=== PATIENT | female | born 1990 | race Two or more races ===

== ENCOUNTER 2018-01-29 10:07 | Inpatient (IN) | payer MEDICAID, OTHER ==
[~2018-01-29] VITALS: Ht 165.1 cm; Wt 75.7 kg
[2018-01-29] MEDS ORDERED: LACT. RINGERS/OXYTOCIN 20UNITS 1,000 ML IV SCH (11:19)
[2018-01-29] MEDS ORDERED: PHISODERM TOP SOLN 240ML BTL TOP PRN (11:30)
[2018-01-29] MEDS ORDERED: DERMOPLAST 60ML BOTTLE TOP PRN (11:30)
[2018-01-29] MEDS ORDERED: WITCH HAZEL-GLYCERIN PAD TOP PRN (11:30)
[2018-01-29] MEDS ORDERED: NALBUPHINE HCL 10 MG/1ml INJECTION IV PRN (11:30)
[2018-01-29] MEDS ORDERED: LIDOCAINE 2%HCL (LOCAL ANESTH.) INJ 20ML MDV ID ONE (11:30)
[2018-01-29] MEDS ORDERED: PREN-96 PO (11:54)
[2018-01-29 12:11] LABS: Basophils # (auto) 0 uL; Basophils % (auto) 0.2 % (0.0-2.0); Eosinophils # (auto) 0 uL; Eosinophils % (auto) 0.3 % (0.0-7.0); Hematocrit 38.8 % (36.0-46.0); Lymphocytes # (auto) 2.1 uL; Lymphocytes % (auto) 21.1 % (10.0-50.0); Mean Corpuscular Hemoglobin 28.8 pg (28.0-32.0); Mean Corpuscular Hgb Conc. 33.4 g/dL (32.0-36.0); Mean Corpuscular Volume 86.2 fL (80.0-100.0); Monocytes # (auto) 0.5 uL; Monocytes % (auto) 4.7 % (0.0-12.0); Neutrophils # (auto) 7.2 uL; Neutrophils % (auto) 73.7 % (37.0-80.0); Nucleated Red Blood Cells % 0.1 %; Platelet Count (auto) 207 10^3/uL (140-450); Red Cell Distribution Width 13.3 % (11.8-14.3); White Blood Cell 9.8 10^3/uL (4.4-10.8)
[2018-01-29 12:28] LABS: Albumin 2.9 g/dL (3.4-5.0); Calcium 8.6 mg/dL (8.5-10.1); INR 0.87 (0.9-1.15); Partial Thromboplastin Time 26.4 sec (23.78-33.04); Prothrombin Time 9.4 sec (9.27-12.13)
[2018-01-29 12:32] LABS: BUN/Creatinine Ratio 10.7; Bilirubin, Total 0.3 mg/dL (0.2-1.0); Total Protein 7.3 g/dL (6.4-8.2)
[2018-01-29] MEDS ORDERED: LACTATED RINGER'S 1,000 ML IV ONE ×2 (13:15→17:00)
[2018-01-29 14:41] LABS: Alcohol, Urine < 3.0 mg/dL (0-5); Amphetamine Screen, Urine NEGATIVE (NEGATIVE); Barbiturate Scree,Urine NEGATIVE (NEGATIVE); Benzodiazephine Screen, Urine NEGATIVE (NEGATIVE); Cannabinoid Screen, Urine NEGATIVE (NEGATIVE); Cocaine Screen, Urine NEGATIVE (NEGATIVE); Opiate Scree,Urine NEGATIVE (NEGATIVE); Phencyclidine Screen, Urine NEGATIVE (NEGATIVE)
[2018-01-29] MEDS ORDERED: LACTATED RINGER'S 1,000 ML IV SCH (15:33)
[2018-01-29] MEDS ORDERED: fentaNYL W ROPIVACAINE 150 ML EPI SCH ×2 (16:00→17:45)
[2018-01-29] MEDS ORDERED: NALOXONE HCL 0.4 MG/ML VIAL IV ONE ×2 (16:00→17:45)
[2018-01-29] MEDS ORDERED: ePHEDrine SULFATE 50 MG/ML AMP IV ONE ×2 (16:00→17:45)
[2018-01-29] MEDS ORDERED: PENICILLIN G POT 5MIL/D5 50ML 50 ML IV ONE (16:00)
[2018-01-29] MEDS ORDERED: LIDOCAINE HCL 2 %PF INJ 10ML AMP IJ ONE (16:00)
[2018-01-29] MEDS ORDERED: fentaNYL CITRATE 100 MCG/2 ML VL IV ONE ×2 (16:00→17:45)
[2018-01-29 16:04] LABS: Urine Bacteria FEW /hpf (None Seen); Urine Blood Negative /uL (Negative); Urine Specific Gravity 1.008 (1.001-1.035); Urine WBC 8 /hpf (0 - 5)
[2018-01-29] MEDS ORDERED: SODIUM CHLORIDE 0.9% 500 ML IV PRN (17:39)
[2018-01-29] MEDS ORDERED: PENICILLIN G POTASSIUM 2,500,000 UNITS in D5W 5% 50 ML IV SCH (20:00)
[2018-01-30] MEDS ORDERED: ACETAMINOPHEN 325 MG TAB PO PRN (01:45)
--- NOTE | 2018-01-30 04:01 | NUR ---
Ambulation: Patient OOB with standby assistance by RN. Patient ambulated to bathroom with steady gait. Patient able to void 700 without difficulty. Pericare teaching provided with returned demonstration by patient. Clean gown provided and bed linen changed. Patient ambulated back to bed with steady gait and no distress noted.
[2018-01-30 05:00] VITALS: BP 124/62
[2018-01-30 05:09] LABS: RPR Non Reactive (Non Reactive)
[2018-01-30 07:03] VITALS: BP 116/55
--- NOTE | 2018-01-30 07:20 | NUR ---
VOID #2 PT AMBULATED TOP BATHROOM WITH STEADY GAIT. PT VOIDED 800ML URINE WITHOUT DIFFICULTY. PT TOLERATED WELL. WILL CONTINUE TO MONITOR.
[2018-01-30 11:10] VITALS: BP 120/61
[2018-01-30] MEDS: IBUPROFEN 600 MG TAB PO PRN (11:35)
[2018-01-30 15:00] VITALS: BP 127/62
[2018-01-30 19:00] VITALS: BP 119/62
[2018-01-30 22:51] VITALS: BP 119/74
[2018-01-31] MEDS: IBUPROFEN 600 MG TAB PO PRN (01:11)
[2018-01-31 03:05] VITALS: BP 113/57
[2018-01-31 06:45] VITALS: BP 132/65
--- NOTE | 2018-01-31 10:02 | NUR ---
Discharge: Discharge instructions given as ordered. Pt encouraged to follow up with NURSE SANE as instructed. All questions and concerns addressed. Patient verbalized understanding. Medication reconciliation completed and copy given to patient. Patient encouraged to prepare to depart unit. Pt significant other and Lashae Sanchez at pt bedside translating.
[2018-01-31 10:52] VITALS: BP 117/66
--- NOTE | 2018-01-31 12:15 | NUR ---
Discharge: Patient taken to vehicle ambulatory via steady gait with all personal belongings, accompanied by staff and spouse. No distress noted at time of departure, no adverse changes in status since initial assessment.
[2018-02-01 05:07] LABS: Rubella Antibodies, IgG 2.25 index (Immune >0.99)
== END 2018-01-31 12:15 | disposition home or self-care (01) | DRG 560 ==
LOC: LDRP 10:07 → OBSVTOIN 11:20 → LDRP 11:21
PROVIDERS: ADMIT Obstetrics & Gynecology; ATTEND Obstetrics & Gynecology
PROC: 10E0XZZ Delivery of Products of Conception, External Approach (ICD-10-PCS; principal; 2018-01-30)
PROC: 0HQ9XZZ Repair Perineum Skin, External Approach (ICD-10-PCS; 2018-01-30)
DX: O69.81X0 Labor and delivery complicated by cord around neck, without compression, not applicable or unspecified (principal); O70.0 First degree perineal laceration during delivery; Z37.0 Single live birth; Z3A.39 39 weeks gestation of pregnancy; O76 Abnormality in fetal heart rate and rhythm complicating labor and delivery
CPT/HCPCS: 36415; 51702; 59020; 59025; 59409; 62282; 80053; 80307; 81001; 81002; 85025; 85610; 85730; 86592; 86703; 86762; 86850; 86900; 86901; 87340; 94762; 96365; 96366; G0378; J2540; J2590; J3010; J7060